=== PATIENT | male | born 1950 | race Caucasian/White ===

== ENCOUNTER 2017-04-26 10:10 | Day surgery (SDC) | payer MEDICARE, OTHER ==
[~2017-04-26] VITALS: Ht 185.4 cm; Wt 87.0 kg
--- NOTE | ~2017-04-26 | OR ---
PATIENT'S NAME: BELÉN SAGASTUME [facility] AGE: 66 Y [address] ROOM: [place] [address] LOCATION: [facility] ADMIT DATE: 04/26/2017 OR/Procedure Report DISCHARGE DATE: FAMILY PHYSICIAN: Randall Em MD ATTENDING PHYSICIAN: CALEB SUNG SURGEON: Caleb Sung MD SALES COACH: Alex Tobin PA-C. DATE OF PROCEDURE: 04/26/2017 PREOPERATIVE DIAGNOSIS: Right septic olecranon bursitis. POSTOPERATIVE DIAGNOSIS: Right septic olecranon bursitis. PROCEDURE: Irrigation, debridement, and excision of right septic olecranon bursa. ANESTHESIA: Sedation anesthesia with right upper extremity peripheral nerve block. SPECIMEN: Right elbow intraoperative cultures and right olecranon bursa. TOURNIQUET: Right proximal arm at 250 mmHg. FLUID: 1200 mL crystalloid. ESTIMATED BLOOD LOSS: Less than 25 mL. SPECIMEN: Right elbow cultures. COMPLICATIONS: None. DISPOSITION: Stable in PACU. COUNTS: All counts correct. INDICATIONS: Mr. Sagastume is a pleasant 66-year-old gentleman who underwent the noted procedures above. The risks, benefits, and alternatives of pursuing a surgical intervention with the patient were discussed with him in detail. He elected to proceed with surgery. Informed consent was obtained. Anesthesia was consulted for their perioperative evaluation of the patient. I marked the patient's right upper extremity indicating the correct surgical site. DESCRIPTION OF PROCEDURE: The patient was brought from the holding area to the operating room. A time-out was performed. Sedation anesthesia was PATIENT'S NAME: BELÉN SAGASTUME [facility] AGE: 66 Y [address] ROOM: [place] [address] LOCATION: [facility] ADMIT DATE: 04/26/2017 OR/Procedure Report DISCHARGE DATE: FAMILY PHYSICIAN: Randall Em MD ATTENDING PHYSICIAN: CALEB SUNG administered. A nerve block was previously placed. Antibiotics were held in preparation in anticipation intraoperative wound cultures. The right upper extremity was then prepped and draped in a sterile fashion. A final time-out was performed. An Esmarch was used to exsanguinate the right upper extremity and the tourniquet was inflated to 250 mmHg. I turned my attention to the posterior aspect of the elbow. With my physician employment legal assistant holding the elbow flexed over the patient's chest. I marked for my surgical incision. There were cellulitis of the elbow and fluctuance at the olecranon bursa. I made a longitudinal incision using a 15 blade knife over the posterior aspect of the olecranon. The skin incision was carried through skin and subcutaneous tissue. I identified the bursa and attempted to keep it intact. I ellipsed around the bursa in order to dissect the soft tissue from the bursal sac. The bursal sac ruptured. The fluid appeared murky and was subsequently cultured. Once the cultures were obtained. Intraoperative antibiotics were administered. Using a dissecting scissor, I worked to continue to lift out the bursal sac. Once the bursal sac was excised, it was sent for specimen. I used a series of curettes and rongeurs to debride the tissue. The ulnar nerve was not visualized and was not apparent in the surgical field. The wound was then copiously irrigated with a normal sterile saline solution via pulsatile lavage. The soft tissue was loosely approximated with a 2-0 nylon suture using interrupted horizontal mattress suture. Sterile dressings were placed in the form of Xeroform, followed by 4x4, Webril, and Tushar bandage. The patient was then placed into a sling. The tourniquet was let down. The hand reperfused well. The patient was then transferred from the operating room table to the stretcher and brought to the recovery room in stable condition. There were no intraoperative complications noted. Of note, my PA, Alex Tobin PA-C, played an integral role in the intraoperative care of this patient. This included preoperative positioning, intraoperative expert retraction, and closing and dressing functions. IMPRESSION: The patient is status post the noted procedures above. PATIENT'S NAME: BELÉN SAGASTUME [facility] AGE: 66 Y [address] ROOM: [address] [address] LOCATION: [facility] ADMIT DATE: 04/26/2017 OR/Procedure Report DISCHARGE DATE: FAMILY PHYSICIAN: Randall Em MD ATTENDING PHYSICIAN: CALEB SUNG PLAN: The patient will be nonweightbearing on the right upper extremity. A compressive dressing will be maintained in place. A sling will also be maintained for comfort. The patient will be admitted overnight in order to follow the cultures and provided IV antibiotics. The hospitalist will be consulted for management of the patient's concomitant medical comorbidities. Physical Therapy and Occupational Therapy will be for early ambulation and prevention of deconditioning. I will continue to follow the patient closely in the postoperative period. MD EDNA DURHAM/dorian /[id number] d: 04/26/17 1559 t: 05/01/17 1359, OPERATIVE SUMMARY
--- NOTE | ~2017-04-26 | DS ---
PATIENT'S NAME: BELÉN ZARCO [facility] AGE: 66 Y [address] ROOM: [address] [address] LOCATION: [facility] ADMIT DATE: 04/26/2017 Discharge Summary DISCHARGE DATE: 04/27/2017 FAMILY PHYSICIAN: Randall mE MD ATTENDING PHYSICIAN: Fabiano Echavarria DISCHARGE DIAGNOSIS: Septic right olecranon bursitis. PROCEDURES: I and D of septic right olecranon bursa. HOSPITAL COURSE: Laboratory has grown out staph on culture, we do not know yet whether this is MRSA or MSSA, but recommendation from Orthopedics is that we place him on doxycycline twice daily. Because I do not feel this is adequate for MRSA, I will be in touch with the patient tomorrow when we have culture results. He indicated understanding. I gave his my phone number and he understands that it is potentially life threatening if we fail to treat MRSA appropriately. Hospital course was benign. He had the procedure and because of the risk of severe pain last night, he was asked to stay over, which he did only after we wore down with significant resistance. Diet and activity ad lynn. RTO will be with Dr. Echavarria in a couple of weeks if all goes well. He may have to go to the emergency room if this goes in the wrong direction and he understands that. MD JAIME MARLOW/dorian /[id number] d: 04/28/17 0402 t: 04/29/17 1719, DISCHARGE SUMMARY
[2017-04-26] MEDS ORDERED: ZOCOR40 MG PO (10:50)
[2017-04-26] MEDS ORDERED: AMBIEN CR6.25 MG PO (10:51)
[2017-04-26] MEDS ORDERED: FISH OIL 1,0001 EACH PO (10:52)
[2017-04-26] MEDS ORDERED: TAB-A-VITE1 EACH PO (10:53)
[2017-04-26] MEDS ORDERED: VITAMIN D1000 UNI1 PO (10:54)
[2017-04-26 11:03] LABS: BASOPHIL % 0.4 %; EOSINOPHIL # 0.1 K/uL (0.0-0.5); HEMATOCRIT 39.2 % (37.0-53.0); HEMOGLOBIN 13.7 g/dL (11.0-16.0); IMMATURE GRANULOCYTE % 0.1 %; LYMPHOCYTE % 13.6 %; MCH 32.9 pg (27.0-34.0); MCHC 34.9 gm/dL (32.0-36.5); MCV 94.2 fl (83.0-98.0); MPV 9.8 fl (9.4-12.4); NEUTROPHIL # (ANC) 5.3 K/uL (1.4-9.0); NEUTROPHIL % 71.9 %; NRBC % 0 /100WBC (0-0.00); PLATELET COUNT 145 K/uL (150-450); RBC 4.16 M/uL (3.50-5.50); RDW-CV 11.5 % (11.9-14.6); WBC 7.4 K/uL (4.0-11.0)
--- NOTE | 2017-04-26 17:28 | NUR ---
Significant Event: Received from pacu @ 3753. Had block and versed. Post op vs complete. SL L) wrist. Unable to wiggle fingers, arm numb, good pulse, fingers warm. Sling on. Has amb to BR with SBA to void. Percocet @ 1504 for anticipatory pain. Will stay tonight for IV ATB, poss discharge tomorrow. Follow up:
--- NOTE | 2017-04-27 04:48 | NUR ---
Shift Summary: Patient can ambulate with standby assist. Right arm is still a little blocked. Can wiggle his fingers, flex his wrist, and grasp things, but arm is tingling. Doesn't not have any pain. Has not had a pain pill all shift. Wears a pocket sling to right arm. Is tolerating regular diet well. Voiding without difficulty. Had his last antibiotic at 0400. Plans to go home today.
--- NOTE | 2017-04-27 08:15 | NUR ---
Introduced self/role to patient, lives in [place] with his . He hopes to go home before lunch today. He denied any barriers to going home or at home. Added my name to his marker board, will follow.
--- NOTE | 2017-04-27 12:10 | NUR ---
Student nurse provided patient cares from 0630 to 1230. Cristina Clark RN, [facility] Instructor
[2017-04-27] MEDS ORDERED: FLORASTOR250 MG PO (13:01)
[2017-04-27] MEDS ORDERED: PERCOCET 5-3251 EACH PO (13:02)
[2017-04-27] MEDS ORDERED: DOXYCYCLINE100 MG PO (13:03)
--- NOTE | 2017-04-27 14:07 | NUR ---
Discharge instructions given to patient and . Reviewed all medications, s/s infection, dvt prevention, when to call the doctor, activity. care of dressing, sling, importance of follow up appt. Sent shower sleeve with patient and explained how to use. all belongings sent with patient. all questions answered.
== END 2017-04-27 13:50 | disposition disaster alternative care site (69) ==
LOC: G3N 10:10 → GSDC 10:10
PROVIDERS: Orthopaedic Surgery Adult Reconstructive Orthopaedic Surgery
PROC: 0MB30ZZ Excision of Right Elbow Bursa and Ligament, Open Approach (ICD-10-PCS; principal; 2017-04-26)
DX: M71.121 Other infective bursitis, right elbow (principal); E78.00 Pure hypercholesterolemia, unspecified; Z98.1 Arthrodesis status; F41.9 Anxiety disorder, unspecified; E78.5 Hyperlipidemia, unspecified; Z79.899 Other long term (current) drug therapy
CPT/HCPCS: J0690; J1100; J2001; J2250; J2405; J2765; J7030